=== PATIENT | female | born 1945 | race Caucasian/White ===

== ENCOUNTER 2024-12-29 09:36 | Emergency (ER) | payer MEDICARE ==
[~2024-12-29] VITALS: Ht 160 cm; Wt 103.0 kg
[2024-12-29 11:03] LABS: BASOPHILS ABSOLUTE AUTO 0.04 K/mm3 (0.00-0.23); BASOPHILS PERCENT AUTO 0 % (0-2); EOSINOPHILS ABSOLUTE AUTO 0.01 K/mm3 (0.00-0.68); EOSINOPHILS PERCENT AUTO 0 % (0-6); Hematocrit 19.4 % (33.0-51.0); IMMATURE GRAN ABSOLUTE AUTO 0.05 K/mm3 (0.00-0.10); IMMATURE GRAN PERCENT AUTO 1 % (0-1); LYMPHOCYTES ABSOLUTE AUTO 1.18 K/mm3 (0.84-5.20); LYMPHOCYTES PERCENT AUTO 11 % (21-46); MONOCYTES ABSOLUTE AUTO 0.86 K/mm3 (0.16-1.47); MONOCYTES PERCENT AUTO 8 % (4-13); Mean Corpuscular HGB Conc 28.4 g/dL (31.5-36.5); Mean Corpuscular Volume 66 fL (80-100); NEUTROPHILS ABSOLUTE AUTO 8.27 K/mm3 (1.96-9.15); NEUTROPHILS PERCENT AUTO 79 % (41-73); NRBC ABSOLUTE 0.02 K/mm3 (0.00-0.02); NRBC Auto 0.2 /100 WBC (0.0-0.2); Platelet Count 384 K/mm3 (150-400); RDW Coefficient Variation 18.1 % (11.7-14.2); RDW Standard Deviation 43.2 fL (35.1-46.3)
[2024-12-29 11:09] LABS: Hemoglobin 5.5 g/dL (11.5-16.0)
[2024-12-29 11:18] LABS: Prothrombin Time Results 11.4 Sec (9.7-11.5)
[2024-12-29 11:23] LABS: Alanine Aminotransfer (ALT/SGP 16.0 U/L (12-78); Albumin, Blood 3.0 g/dL (3.4-5.0); Albumin/Globulin Ratio 0.8 (0.8-1.8); Anion Gap 12.0 mmol/L (3-11); Aspartate Aminotrans (AST/SGOT 16.0 U/L (12-37); Bilirubin, Total 0.3 mg/dL (0.1-1.0); Blood Urea Nitrogen 27.0 mg/dL (8-24); CO2, Blood 25.0 mmol/L (21-32); Calcium, Blood 8.8 mg/dL (8.5-10.1); Chloride, Blood 100.0 mmol/L (98-108); Creatinine, Blood 0.89 mg/dL (0.40-1.00); Globulin, Blood 3.9 g/dL (2.2-4.0); Glucose, Blood 132.0 mg/dL (70-99); Magnesium, Blood 2.1 mg/dL (1.6-2.4); Potassium, Blood 3.5 mmol/L (3.5-5.5); Sodium, Blood 133.0 mmol/L (136-145); Total Protein, Blood 6.9 g/dL (6.4-8.2)
[2024-12-29] MEDS ORDERED: Sod Ferric Gluc Complx/Sucrose 125 MG in NS 100 ML IV ONE (11:45)
[2024-12-29] MEDS ORDERED: NS 1,000 ML IV ONE (13:43)
[2024-12-29] MEDS ORDERED: NS 1,000 ML IV SCH (14:00)
[2024-12-29] MEDS ORDERED: FERSU300 PO (17:20)
[2024-12-29 18:00] VITALS: BP 136/75
[2024-12-29 19:13] LABS: Hematocrit 25.8 % (33.0-51.0); Hemoglobin 7.7 g/dL (11.5-16.0)
== END 2024-12-29 18:24 | disposition home or self-care (01) ==
LOC: ER 09:36
PROVIDERS: Student in an Organized Health Care Education/Training Program
DX: D50.9 Iron deficiency anemia, unspecified (principal); I95.89 Other hypotension; K64.4 Residual hemorrhoidal skin tags; R55 Syncope and collapse; Z88.0 Allergy status to penicillin; Z88.8 Allergy status to other drugs, medicaments and biological substances
CPT/HCPCS: 36430; 74177; 80053; 82272; 83735; 85014; 85018; 85025; 85610; 85730; 86850; 86900; 86901; 86923; 96365-59; 99285-25; J2916; J7030; P9016; Q9967